=== PATIENT | female | born 1990 | race Caucasian/White ===

== ENCOUNTER → 2023-03-06 11:03 | Outpatient (REF) | payer BC, SELFPAY ==
[2023-03-06 12:20] LABS: Beta HCG Quantitative 13.17 mIU/ml
== END ==
LOC: REG 11:03
PROVIDERS: ATTENDING PHYSICIAN Nurse Practitioner
DX: O02.81 Inappropriate change in quantitative human chorionic gonadotropin (hCG) in early pregnancy (principal)
CPT/HCPCS: 84702

== ENCOUNTER 2024-04-30 14:47 | Outpatient (RCR) | payer BC, SELFPAY | END 2024-04-30 23:59 | disposition home or self-care (01) | LOC: RPT 14:47 | PROVIDERS: ATTENDING PHYSICIAN Obstetrics & Gynecology; FAMILY PHYSICIAN Registered Nurse | DX: M99.05 Segmental and somatic dysfunction of pelvic region (principal); M62.89 Other specified disorders of muscle; R10.2 Pelvic and perineal pain; K59.00 Constipation, unspecified; Z73.6 Limitation of activities due to disability | CPT/HCPCS: 97112; 97140; 97162; 97530 ==

== ENCOUNTER 2024-05-08 07:08 | Outpatient (RCR) | payer BC, SELFPAY | END 2024-05-08 23:59 | disposition home or self-care (01) | LOC: RPT 07:08 | PROVIDERS: ATTENDING PHYSICIAN Obstetrics & Gynecology; FAMILY PHYSICIAN Registered Nurse | DX: M99.05 Segmental and somatic dysfunction of pelvic region (principal); M62.89 Other specified disorders of muscle; R10.2 Pelvic and perineal pain; K59.00 Constipation, unspecified; Z73.6 Limitation of activities due to disability | CPT/HCPCS: 97140; 97530 ==

== ENCOUNTER 2024-06-16 09:02 | Outpatient (RCR) | payer BC, SELFPAY | END 2024-06-16 14:42 | disposition home or self-care (01) | LOC: RPT 09:02 | PROVIDERS: ATTENDING PHYSICIAN Obstetrics & Gynecology; FAMILY PHYSICIAN Registered Nurse | DX: M99.05 Segmental and somatic dysfunction of pelvic region (principal); M62.89 Other specified disorders of muscle; R10.2 Pelvic and perineal pain; K59.00 Constipation, unspecified; Z73.6 Limitation of activities due to disability | CPT/HCPCS: 97110; 97112 ==